=== PATIENT | male | born 1945 | race Caucasian/White ===

== ENCOUNTER 2021-07-19 01:00 | Inpatient (IN) | payer OTHER ==
[~2021-07-19] VITALS: Ht 182.9 cm; Wt 74.6 kg
[2021-07-19] MEDS ORDERED: ONDANSETRON HCL 4 MG/2 ML VIAL IV PRN (04:30)
[2021-07-19] MEDS ORDERED: NITROGLYCERIN 0.4 MG SL TAB SL PRN (04:30)
[2021-07-19] MEDS ORDERED: HYDROcodone-ACET 5/325MG TAB PO PRN (04:30)
[2021-07-19] MEDS ORDERED: ACETAMINOPHEN 325 MG TAB PO PRN (04:30)
[2021-07-19] MEDS ORDERED: MORPHINE SULFATE INJECTION 2 MG/ML SYRG IV PRN (04:30)
[2021-07-19] MEDS ORDERED: hydrALAZINE HCL 20 MG/ML VL IV PRN (04:30)
[2021-07-19] MEDS ORDERED: MORPHINE SULFATE 4 MG/ML SYR/VIAL IV PRN (04:30)
[2021-07-19 04:37] VITALS: BP 102/70
[2021-07-19 05:00] VITALS: BP 90/65
[2021-07-19] MEDS: SODIUM CHLOR 0.9% PF (SALINE LOCK) 10ML VIAL/SYR IV SCH ×3 (06:14→17:00)
[2021-07-19 07:16] LABS: Basophils # (auto) 0.1 10 ^3/uL (0-0.2); Basophils % (auto) 0.9 % (0.0-2.0); Eosinophils # (auto) 0.2 10 ^3/uL (0-0.8); Eosinophils % (auto) 3.2 % (0.0-7.0); Hematocrit 40.4 % (41.0-53.0); Hemoglobin 13.5 g/dL (13.5-17.5); Lymphocytes # (auto) 2.4 10 ^3/uL (0.4-5.4); Lymphocytes % (auto) 35.2 % (10.0-50.0); Mean Corpuscular Hemoglobin 28.7 pg (28.0-32.0); Mean Corpuscular Hgb Conc. 33.5 g/dL (32.0-36.0); Mean Corpuscular Volume 85.7 fL (80.0-100.0); Monocytes # (auto) 0.8 10 ^3/uL (0-1.3); Monocytes % (auto) 12.6 % (0.0-12.0); Neutrophils # (auto) 3.2 10 ^3/uL (1.6-8.6); Neutrophils % (auto) 48.1 % (37.0-80.0); Nucleated Red Blood Cells % 0.3 %; Red Blood Cells 4.71 10^6/uL (4.5-5.90); Red Cell Distribution Width 19.6 % (11.8-14.3); White Blood Cell 6.7 10^3/uL (4.4-10.8)
[2021-07-19 07:28] LABS: Potassium 3.2 mmol/L (3.5-5.1)
[2021-07-19] MEDS: MILK OF MAGNESIA 30ML SUSP PO PRN (07:28)
[2021-07-19 07:38] LABS: Albumin 2.8 g/dL (3.4-5.0); BUN/Creatinine Ratio 27.9; Bilirubin, Total 1.2 mg/dL (0.2-1.0); Calcium 8.7 mg/dL (8.5-10.1); Total Protein 6.1 g/dL (6.4-8.2)
[2021-07-19 09:00] VITALS: BP 112/80
[2021-07-19] MEDS: DOCUSATE SOD 100 MG CAP PO PRN (09:54)
[2021-07-19] MEDS: ASCORBIC ACID 500 MG TAB PO SCH ×2 (09:54→22:34)
[2021-07-19] MEDS: ZINC SULFATE 220mg CAP or TAB PO SCH (09:55)
[2021-07-19] MEDS: FAMOTIDINE (10MG/ML) 2ML VL IV SCH (09:55)
[2021-07-19] MEDS: ENOXAPARIN SOD 40 MG/0.4 ML SYRINGE SC SCH (09:56)
[2021-07-19] MEDS: ASPirin 81 mg TAB PO SCH (09:56)
[2021-07-19] MEDS: CARVEDILOL 3.125 MG TAB PO SCH ×2 (10:00→22:34)
[2021-07-19] MEDS ORDERED: FUROSEMIDE 40 MG/4 ML VIAL IV SCH (10:00)
[2021-07-19] MEDS ORDERED: MULTIPLE VITAMIN TAB PO SCH (10:00)
[2021-07-19 13:00] VITALS: BP 113/89
[2021-07-19] MEDS ORDERED: POTASSIUM CHL 20 Meq TABLET PO ONE (13:45)
[2021-07-19] MEDS ORDERED: POTASSIUM CHL 20MEQ/100ML 100 ML IV SCH (14:45)
[2021-07-19] MEDS ORDERED: AZITHROMYCIN 500MG/ 250ML 250 ML IV ONE (15:00)
[2021-07-19 17:00] VITALS: BP 115/89
[2021-07-19] MEDS ORDERED: POTASSIUM CHLORIDE 20 MEQ, LIDOCAINE 1% (LOCAL ANESTH.) 2 ML in SODIUM CHL 0.9% 100 ML IV ONE (17:30)
[2021-07-19] MEDS ORDERED: POTASSIUM (KCL) 40 MEQ,LIDOCAINE 1% 4 ML in NS 250 ML IV ONE ×3 (17:45)
[2021-07-19] MEDS ORDERED: ALBUTEROL SULF 2.5 MG/0.5ML(0.5%) NEB SOLN NEB SCH (18:00)
[2021-07-19] MEDS ORDERED: IPRATROPIUM BROM 0.5 MG/2.5ML INH SOL NEB SCH (18:00)
[2021-07-19] MEDS: FUROSEMIDE 40 MG/4 ML VIAL IV SCH (18:01)
[2021-07-19] MEDS: BUDESONIDE (INHALATION) 0.5 MG/2 ML NEB NEB SCH (18:20)
[2021-07-19 22:00] VITALS: BP 110/77
[2021-07-19] MEDS: methylPREDNISolone SOD SUCC 40 MG/ML VL IV SCH (22:33)
[2021-07-19] MEDS: ATORVASTATIN 20 MG TAB PO SCH (22:34)
[2021-07-20 05:00] VITALS: BP 111/72
[2021-07-20] MEDS: FUROSEMIDE 40 MG/4 ML VIAL IV SCH ×2 (05:53→18:24)
[2021-07-20] MEDS: SODIUM CHLOR 0.9% PF (SALINE LOCK) 10ML VIAL/SYR IV SCH ×3 (05:54→22:00)
[2021-07-20] MEDS: BUDESONIDE (INHALATION) 0.5 MG/2 ML NEB NEB SCH ×2 (06:15→22:24)
[2021-07-20] MEDS: ALBUTEROL SULF 2.5 MG/0.5ML(0.5%) NEB SOLN NEB PRN ×2 (06:15→22:24)
[2021-07-20 07:29] LABS: Basophils # (auto) 0 10 ^3/uL (0-0.2); Basophils % (auto) 0.4 % (0.0-2.0); Eosinophils # (auto) 0 10 ^3/uL (0-0.8); Hematocrit 47.9 % (41.0-53.0); Hemoglobin 15.5 g/dL (13.5-17.5); Lymphocytes # (auto) 1.6 10 ^3/uL (0.4-5.4); Lymphocytes % (auto) 19.5 % (10.0-50.0); Mean Corpuscular Hemoglobin 27.8 pg (28.0-32.0); Mean Corpuscular Hgb Conc. 32.4 g/dL (32.0-36.0); Monocytes # (auto) 0.1 10 ^3/uL (0-1.3); Monocytes % (auto) 1.2 % (0.0-12.0); Neutrophils # (auto) 6.6 10 ^3/uL (1.6-8.6); Neutrophils % (auto) 78.9 % (37.0-80.0); Nucleated Red Blood Cells % 0.1 %; Red Blood Cells 5.57 10^6/uL (4.5-5.90); Red Cell Distribution Width 19.9 % (11.8-14.3); White Blood Cell 8.4 10^3/uL (4.4-10.8)
[2021-07-20 07:48] LABS: Albumin 3.2 g/dL (3.4-5.0); Anion Gap 10 (5-15); BUN/Creatinine Ratio 23.8; Blood Urea Nitrogen 19 mg/dL (7-18); Carbon Dioxide 26 mmol/L (21-32); Chloride 104 mmol/L (98-107); GFR African American 121 mL/min; GFR Non-African American 100 mL/min; Glucose 151 mg/dL (74-106); Magnesium 2.5 mg/dL (1.6-2.6); Sodium 140 mmol/L (136-145)
[2021-07-20 07:53] LABS: Alanine Aminotransferase 57 U/L (16-61); Alkaline Phosphatase 86 U/L (45-117); Aspartate Aminotransferase 34 U/L (15-37); Bilirubin, Total 1.4 mg/dL (0.2-1.0); Phosphorus 3.7 mg/dL (2.5-4.90); Total Protein 7.5 g/dL (6.4-8.2)
[2021-07-20 08:51] VITALS: BP 116/88
[2021-07-20] MEDS: methylPREDNISolone SOD SUCC 40 MG/ML VL IV SCH ×2 (10:00→22:40)
[2021-07-20] MEDS ORDERED: LISINOPRIL 5 MG TAB PO SCH (10:00)
[2021-07-20] MEDS: ENOXAPARIN SOD 40 MG/0.4 ML SYRINGE SC SCH (10:00)
[2021-07-20] MEDS ORDERED: AZITHROMYCIN 500MG/ 250ML 250 ML IV SCH (10:00)
[2021-07-20] MEDS: FAMOTIDINE (10MG/ML) 2ML VL IV SCH (10:01)
[2021-07-20] MEDS: ZINC SULFATE 220mg CAP or TAB PO SCH (10:01)
[2021-07-20] MEDS: ASPirin 81 mg TAB PO SCH (10:02)
[2021-07-20] MEDS: POTASSIUM CHL 20 Meq TABLET PO SCH (10:02)
[2021-07-20] MEDS: CARVEDILOL 3.125 MG TAB PO SCH ×2 (10:03→22:40)
[2021-07-20] MEDS: DOCUSATE SOD 100 MG CAP PO PRN ×2 (10:04→22:41)
[2021-07-20] MEDS: MILK OF MAGNESIA 30ML SUSP PO PRN ×2 (10:07→14:07)
[2021-07-20 13:00] VITALS: BP 112/78
[2021-07-20 17:00] VITALS: BP 102/72
[2021-07-20 22:00] VITALS: BP 106/72
[2021-07-20] MEDS: IPRATROPIUM BROM 0.5 MG/2.5ML INH SOL NEB PRN (22:24)
[2021-07-20] MEDS: ATORVASTATIN 20 MG TAB PO SCH (22:39)
[2021-07-21] VITALS (8 sets, daily range): BP systolic 101–123; BP diastolic 72–87
[2021-07-21] MEDS: SODIUM CHLOR 0.9% PF (SALINE LOCK) 10ML VIAL/SYR IV SCH ×3 (05:27→22:24)
[2021-07-21] MEDS: FUROSEMIDE 40 MG/4 ML VIAL IV SCH ×2 (05:33→17:43)
[2021-07-21] MEDS: MILK OF MAGNESIA 30ML SUSP PO PRN (05:33)
[2021-07-21 08:16] LABS: BUN/Creatinine Ratio 30.8; Calcium 8.9 mg/dL (8.5-10.1)
[2021-07-21] MEDS ORDERED: ADENOSINE 59 MG in GIVE UN-DILUTED 0 ML IV STA (08:47)
[2021-07-21] MEDS: DOXYCYCLINE 100 MG TAB/CAP PO SCH ×2 (10:22→22:24)
[2021-07-21] MEDS: methylPREDNISolone SOD SUCC 40 MG/ML VL IV SCH ×2 (10:22→22:22)
[2021-07-21] MEDS: ASPirin 81 mg TAB PO SCH (10:22)
[2021-07-21] MEDS: POTASSIUM CHL 20 Meq TABLET PO SCH (10:22)
[2021-07-21] MEDS: FAMOTIDINE (10MG/ML) 2ML VL IV SCH (10:22)
[2021-07-21] MEDS: ENOXAPARIN SOD 40 MG/0.4 ML SYRINGE SC SCH (10:22)
[2021-07-21] MEDS: CARVEDILOL 3.125 MG TAB PO SCH ×2 (10:23→22:23)
[2021-07-21] MEDS: ZINC SULFATE 220mg CAP or TAB PO SCH (10:24)
[2021-07-21] MEDS: BUDESONIDE (INHALATION) 0.5 MG/2 ML NEB NEB SCH ×2 (11:01→22:52)
[2021-07-21] MEDS: ALBUTEROL SULF 2.5 MG/0.5ML(0.5%) NEB SOLN NEB PRN ×2 (11:01→22:52)
[2021-07-21] MEDS: IPRATROPIUM BROM 0.5 MG/2.5ML INH SOL NEB PRN ×2 (11:01→22:52)
[2021-07-21] MEDS: ATORVASTATIN 20 MG TAB PO SCH (22:23)
[2021-07-21] MEDS: SACUBITRIL-VALSARTAN 24mg/26mg TAB PO SCH (22:23)
[2021-07-22 05:14] VITALS: BP 107/77
[2021-07-22] MEDS: SODIUM CHLOR 0.9% PF (SALINE LOCK) 10ML VIAL/SYR IV SCH ×3 (06:30→21:42)
[2021-07-22] MEDS: FUROSEMIDE 40 MG/4 ML VIAL IV SCH ×2 (06:30→17:23)
[2021-07-22 09:00] VITALS: BP 115/83
[2021-07-22] MEDS: methylPREDNISolone SOD SUCC 40 MG/ML VL IV SCH (09:54)
[2021-07-22] MEDS: ASPirin 81 mg TAB PO SCH (09:55)
[2021-07-22] MEDS: ZINC SULFATE 220mg CAP or TAB PO SCH (09:55)
[2021-07-22] MEDS: CARVEDILOL 3.125 MG TAB PO SCH ×2 (09:56→21:42)
[2021-07-22] MEDS: SACUBITRIL-VALSARTAN 24mg/26mg TAB PO SCH ×2 (09:56→21:42)
[2021-07-22] MEDS: DOXYCYCLINE 100 MG TAB/CAP PO SCH ×2 (09:57→21:43)
[2021-07-22] MEDS: ENOXAPARIN SOD 40 MG/0.4 ML SYRINGE SC SCH (09:58)
[2021-07-22] MEDS: POTASSIUM CHL 20 Meq TABLET PO SCH (09:58)
[2021-07-22] MEDS: BUDESONIDE (INHALATION) 0.5 MG/2 ML NEB NEB SCH ×2 (10:09→23:41)
[2021-07-22] MEDS ORDERED: ERGOCALCIFEROL 50,000 UNIT(1.25MG) CAP PO SCH (11:15)
[2021-07-22] MEDS: DAPAGLIFLOZIN 5 MG TAB PO SCH (12:13)
[2021-07-22 13:00] VITALS: BP 114/79
[2021-07-22 17:00] VITALS: BP 114/90
[2021-07-22 21:20] VITALS: BP 105/68
[2021-07-22] MEDS: ATORVASTATIN 20 MG TAB PO SCH (21:43)
[2021-07-22] MEDS: IPRATROPIUM BROM 0.5 MG/2.5ML INH SOL NEB PRN (23:41)
[2021-07-22] MEDS: ALBUTEROL SULF 2.5 MG/0.5ML(0.5%) NEB SOLN NEB PRN (23:41)
[2021-07-23] VITALS (10 sets, daily range): BP systolic 101–122; BP diastolic 68–86
[2021-07-23] MEDS: SODIUM CHLOR 0.9% PF (SALINE LOCK) 10ML VIAL/SYR IV SCH ×3 (05:05→22:12)
[2021-07-23] MEDS: FUROSEMIDE 40 MG/4 ML VIAL IV SCH (05:05)
[2021-07-23] MEDS: BUDESONIDE (INHALATION) 0.5 MG/2 ML NEB NEB SCH ×2 (06:05→18:10)
[2021-07-23] MEDS: ALBUTEROL SULF 2.5 MG/0.5ML(0.5%) NEB SOLN NEB PRN ×2 (06:05→18:10)
[2021-07-23 07:26] LABS: Basophils # (auto) 0 10 ^3/uL (0-0.2); Basophils % (auto) 0.2 % (0.0-2.0); Eosinophils # (auto) 0 10 ^3/uL (0-0.8); Eosinophils % (auto) 0.1 % (0.0-7.0); Hematocrit 44.4 % (41.0-53.0); Hemoglobin 14.6 g/dL (13.5-17.5); Lymphocytes # (auto) 3.6 10 ^3/uL (0.4-5.4); Lymphocytes % (auto) 22.5 % (10.0-50.0); Mean Corpuscular Hemoglobin 28.5 pg (28.0-32.0); Mean Corpuscular Hgb Conc. 32.9 g/dL (32.0-36.0); Mean Corpuscular Volume 86.6 fL (80.0-100.0); Monocytes # (auto) 1.5 10 ^3/uL (0-1.3); Monocytes % (auto) 9.5 % (0.0-12.0); Neutrophils # (auto) 10.9 10 ^3/uL (1.6-8.6); Neutrophils % (auto) 67.7 % (37.0-80.0); Nucleated Red Blood Cells % 0.2 %; Red Blood Cells 5.12 10^6/uL (4.5-5.90); Red Cell Distribution Width 19.8 % (11.8-14.3)
[2021-07-23 07:46] LABS: INR 1.21 (0.9-1.15); Partial Thromboplastin Time 27.1 sec (23.6-33.0)
[2021-07-23 08:03] LABS: BUN/Creatinine Ratio 34.7; Calcium 8.7 mg/dL (8.5-10.1)
[2021-07-23] MEDS: ENOXAPARIN SOD 40 MG/0.4 ML SYRINGE SC SCH (09:07)
[2021-07-23] MEDS: ASPirin 81 mg TAB PO SCH (09:30)
[2021-07-23] MEDS: DAPAGLIFLOZIN 5 MG TAB PO SCH (09:31)
[2021-07-23] MEDS: SACUBITRIL-VALSARTAN 24mg/26mg TAB PO SCH ×2 (09:31→22:12)
[2021-07-23] MEDS: CARVEDILOL 3.125 MG TAB PO SCH ×2 (09:31→22:12)
[2021-07-23] MEDS: DOXYCYCLINE 100 MG TAB/CAP PO SCH ×2 (09:31→22:13)
[2021-07-23] MEDS: POTASSIUM CHL 20 Meq TABLET PO SCH (09:31)
[2021-07-23] MEDS ORDERED: IODIXANOL 320MG/ML 100ML BTL IV ONE ×2 (14:04→15:18)
[2021-07-23] MEDS ORDERED: LIDOCAINE 2%HCL (LOCAL ANESTH.) INJ 20ML MDV ONE (14:04)
[2021-07-23] MEDS ORDERED: fentaNYL CITRATE 100 MCG/2 ML VL ONE (14:43)
[2021-07-23] MEDS ORDERED: HEPARIN SODIUM (PORCINE) 5000 UNITS/ML 1ML VIAL ONE (14:43)
[2021-07-23] MEDS ORDERED: ANGIOMAX 250 MG VIAL IV ONE (14:43)
[2021-07-23] MEDS ORDERED: VERAPAMIL 2.5MG/ML INJ 2ML VIAL IV ONE (14:43)
[2021-07-23] MEDS ORDERED: MIDAZOLAM HCL 2MG/2ML 2ml VIAL (1mg/ml) ONE (14:44)
[2021-07-23] MEDS ORDERED: SODIUM CHL 0.9% 50 ML ONE (14:44)
[2021-07-23] MEDS ORDERED: CLOPIDOGREL 300 MG TAB ONE (15:34)
[2021-07-23] MEDS ORDERED: ASPirin 325 MG TAB ONE (15:34)
[2021-07-23] MEDS: FUROSEMIDE 20 MG/2 ML VIAL IV SCH (17:13)
[2021-07-23] MEDS: ATORVASTATIN 20 MG TAB PO SCH (22:12)
[2021-07-24 05:00] VITALS: BP 100/73
[2021-07-24] MEDS: FUROSEMIDE 20 MG/2 ML VIAL IV SCH ×2 (06:08→17:40)
[2021-07-24] MEDS: SODIUM CHLOR 0.9% PF (SALINE LOCK) 10ML VIAL/SYR IV SCH ×3 (06:08→20:22)
[2021-07-24 06:54] LABS: BUN/Creatinine Ratio 36.4; Calcium 8.5 mg/dL (8.5-10.1); Potassium 4.2 mmol/L (3.5-5.1)
[2021-07-24 09:00] VITALS: BP 87/65
[2021-07-24 09:15] VITALS: BP 108/76
[2021-07-24] MEDS ORDERED: CLOPIDOGREL BISULFATE 75 MG TAB PO SCH (10:00)
[2021-07-24] MEDS: POTASSIUM CHL 20 Meq TABLET PO SCH ×2 (10:00→10:04)
[2021-07-24] MEDS: ASPirin 81 mg TAB PO SCH (10:02)
[2021-07-24] MEDS: CARVEDILOL 3.125 MG TAB PO SCH ×2 (10:03→20:24)
[2021-07-24] MEDS: ENOXAPARIN SOD 40 MG/0.4 ML SYRINGE SC SCH (10:05)
[2021-07-24] MEDS: DOXYCYCLINE 100 MG TAB/CAP PO SCH ×2 (10:05→20:25)
[2021-07-24] MEDS: SACUBITRIL-VALSARTAN 24mg/26mg TAB PO SCH ×2 (10:06→20:24)
[2021-07-24] MEDS: DAPAGLIFLOZIN 5 MG TAB PO SCH (10:25)
[2021-07-24] MEDS: ALBUTEROL SULF 2.5 MG/0.5ML(0.5%) NEB SOLN NEB PRN ×2 (10:40→20:00)
[2021-07-24] MEDS: BUDESONIDE (INHALATION) 0.5 MG/2 ML NEB NEB SCH ×2 (10:41→20:01)
[2021-07-24] MEDS: IPRATROPIUM BROM 0.5 MG/2.5ML INH SOL NEB PRN ×2 (10:41→20:00)
[2021-07-24 13:00] VITALS: BP 99/75
[2021-07-24 17:00] VITALS: BP 101/86
[2021-07-24] MEDS: ATORVASTATIN 20 MG TAB PO SCH (20:24)
[2021-07-24] MEDS: MILK OF MAGNESIA 30ML SUSP PO PRN (21:14)
[2021-07-24 22:00] VITALS: BP 103/81
[2021-07-25 05:00] VITALS: BP 99/75
[2021-07-25] MEDS: SODIUM CHLOR 0.9% PF (SALINE LOCK) 10ML VIAL/SYR IV SCH (05:13)
[2021-07-25] MEDS: FUROSEMIDE 20 MG/2 ML VIAL IV SCH (05:13)
[2021-07-25 06:46] LABS: INR 1.21 (0.9-1.15); Partial Thromboplastin Time 26.8 sec (23.6-33.0)
[2021-07-25 06:53] LABS: BUN/Creatinine Ratio 32.8; Calcium 8.5 mg/dL (8.5-10.1)
[2021-07-25] MEDS: ENOXAPARIN SOD 40 MG/0.4 ML SYRINGE SC SCH (07:33)
[2021-07-25 07:48] LABS: Basophils # (auto) 0 10 ^3/uL (0-0.2); Basophils % (auto) 0.3 % (0.0-2.0); Eosinophils # (auto) 0.2 10 ^3/uL (0-0.8); Eosinophils % (auto) 2.2 % (0.0-7.0); Hemoglobin 16.2 g/dL (13.5-17.5); Lymphocytes # (auto) 5.3 10 ^3/uL (0.4-5.4); Lymphocytes % (auto) 46.9 % (10.0-50.0); Mean Corpuscular Hgb Conc. 32.4 g/dL (32.0-36.0); Mean Corpuscular Volume 86.3 fL (80.0-100.0); Monocytes # (auto) 0.8 10 ^3/uL (0-1.3); Monocytes % (auto) 7.1 % (0.0-12.0); Neutrophils # (auto) 4.9 10 ^3/uL (1.6-8.6); Neutrophils % (auto) 43.5 % (37.0-80.0); Nucleated Red Blood Cells % 0.6 %; Red Cell Distribution Width 19.7 % (11.8-14.3); White Blood Cell 11.2 10^3/uL (4.4-10.8)
[2021-07-25 09:00] VITALS: BP 100/72
[2021-07-25] MEDS: ASPirin 81 mg TAB PO SCH (10:26)
[2021-07-25] MEDS: CARVEDILOL 3.125 MG TAB PO SCH (10:27)
[2021-07-25] MEDS: DAPAGLIFLOZIN 5 MG TAB PO SCH (10:27)
[2021-07-25] MEDS: SACUBITRIL-VALSARTAN 24mg/26mg TAB PO SCH (10:27)
[2021-07-25] MEDS: DOXYCYCLINE 100 MG TAB/CAP PO SCH (10:28)
[2021-07-25 13:00] VITALS: BP 102/82
[2021-07-25 16:53] VITALS: BP 109/70
[2021-07-25 17:00] VITALS: BP 109/70
== END 2021-07-25 17:53 | disposition home or self-care (01) | DRG 246 ==
LOC: TELE-CENTR 01:00
PROVIDERS: ADMIT Internal Medicine; ATTEND Internal Medicine
PROC: 4B02XTZ Measurement of Cardiac Defibrillator, External Approach (ICD-10-PCS; 2021-07-21)
PROC: 027034Z Dilation of Coronary Artery, One Artery with Drug-eluting Intraluminal Device, Percutaneous Approach (ICD-10-PCS; principal; 2021-07-23)
PROC: 4A023N7 Measurement of Cardiac Sampling and Pressure, Left Heart, Percutaneous Approach (ICD-10-PCS; 2021-07-23)
PROC: B211YZZ Fluoroscopy of Multiple Coronary Arteries using Other Contrast (ICD-10-PCS; 2021-07-23)
PROC: B215YZZ Fluoroscopy of Left Heart using Other Contrast (ICD-10-PCS; 2021-07-23)
PROC: B213YZZ Fluoroscopy of Multiple Coronary Artery Bypass Grafts using Other Contrast (ICD-10-PCS; 2021-07-23)
PROC: B218YZZ Fluoroscopy of Left Internal Mammary Bypass Graft using Other Contrast (ICD-10-PCS; 2021-07-23)
DX: I21.4 Non-ST elevation (NSTEMI) myocardial infarction (principal); I50.23 Acute on chronic systolic (congestive) heart failure; E43 Unspecified severe protein-calorie malnutrition; J44.1 Chronic obstructive pulmonary disease with (acute) exacerbation; Z68.1 Body mass index [BMI] 19.9 or less, adult; I47.2 Ventricular tachycardia; E87.6 Hypokalemia; E78.5 Hyperlipidemia, unspecified; E55.9 Vitamin D deficiency, unspecified; I11.0 Hypertensive heart disease with heart failure; I25.10 Atherosclerotic heart disease of native coronary artery without angina pectoris; I25.5 Ischemic cardiomyopathy; I50.82 Biventricular heart failure; Z20.822 Contact with and (suspected) exposure to COVID-19; K21.9 Gastro-esophageal reflux disease without esophagitis; R73.03 Prediabetes; Z82.49 Family history of ischemic heart disease and other diseases of the circulatory system; Z95.810 Presence of automatic (implantable) cardiac defibrillator; Z95.1 Presence of aortocoronary bypass graft
CPT/HCPCS: 36415; 71045; 78452; 80048; 80053; 80061; 82306; 83036; 83735; 83880; 84100; 84443; 84484; 85025; 85610; 85730; 87081; 87426; 93005; 93017; 93306; 94640; 99152; 99153; C1874; G0378; J0153; J2001; J2250; J2405; J3480; J3490; Q9967

== ENCOUNTER 2021-08-17 16:18 | Inpatient (IN) | payer OTHER ==
[~2021-08-17] VITALS: Ht 190.5 cm; Wt 77.7 kg
[2021-08-17 16:24] VITALS: BP 169/108
[2021-08-17] MEDS ORDERED: MORPHINE SULFATE INJECTION 2 MG/ML SYRG IV PRN (16:30)
[2021-08-17] MEDS ORDERED: ONDANSETRON HCL 4 MG/2 ML VIAL IV PRN (16:30)
[2021-08-17] MEDS ORDERED: HYDROcodone-ACET 5/325MG TAB PO PRN (16:30)
[2021-08-17] MEDS ORDERED: LORazepam 0.5 MG TAB PO PRN (16:30)
[2021-08-17] MEDS ORDERED: DOCUSATE SOD 100 MG CAP PO PRN (16:30)
[2021-08-17] MEDS ORDERED: ACETAMINOPHEN 325 MG TAB PO PRN (16:30)
[2021-08-17] MEDS ORDERED: cefTRIAXone 1GM/50ML D5W 50 ML IV ONE (16:45)
[2021-08-17] MEDS ORDERED: POTA-220 PO (16:58)
[2021-08-17] MEDS ORDERED: ASPI325T4 PO (16:58)
[2021-08-17] MEDS ORDERED: CAR3125T PO (16:58)
[2021-08-17] MEDS ORDERED: ATO40T PO (16:58)
[2021-08-17] MEDS ORDERED: CLOP75TA28 PO (16:58)
[2021-08-17] MEDS ORDERED: DAPA1TAB4 PO (16:58)
[2021-08-17] MEDS ORDERED: SACU1TAB PO (16:58)
[2021-08-17] MEDS ORDERED: FURO1TAB31 PO (16:58)
[2021-08-17 17:28] LABS: Basophils # (auto) 0 10 ^3/uL (0-0.2); Basophils % (auto) 0.4 % (0.0-2.0); Eosinophils # (auto) 0 10 ^3/uL (0-0.8); Eosinophils % (auto) 0.2 % (0.0-7.0); Hematocrit 42.5 % (41.0-53.0); Hemoglobin 14.1 g/dL (13.5-17.5); Lymphocytes # (auto) 0.8 10 ^3/uL (0.4-5.4); Lymphocytes % (auto) 16.9 % (10.0-50.0); Mean Corpuscular Hemoglobin 28.8 pg (28.0-32.0); Monocytes # (auto) 0.1 10 ^3/uL (0-1.3); Monocytes % (auto) 1.3 % (0.0-12.0); Neutrophils # (auto) 4.1 10 ^3/uL (1.6-8.6); Neutrophils % (auto) 81.2 % (37.0-80.0); Nucleated Red Blood Cells % 0.2 %; Red Blood Cells 4.89 10^6/uL (4.5-5.90); Red Cell Distribution Width 18.3 % (11.8-14.3)
[2021-08-17 17:33] LABS: Calcium 8.7 mg/dL (8.5-10.1); Potassium 4.1 mmol/L (3.5-5.1)
[2021-08-17 17:36] LABS: BUN/Creatinine Ratio 18.1
[2021-08-17] MEDS ORDERED: AZITHROMYCIN 500MG/ 250ML 250 ML IV ONE (18:00)
[2021-08-17] MEDS: IPRATROPIUM BROM 0.5 MG/2.5ML INH SOL NEB PRN ×2 (18:22→22:01)
[2021-08-17] MEDS: ALBUTEROL SULF 2.5 MG/0.5ML(0.5%) NEB SOLN NEB SCH ×2 (18:23→22:00)
[2021-08-17 20:00] VITALS: BP 133/96
[2021-08-17 20:31] LABS: Urine Bacteria NONE SEEN /hpf (None Seen); Urine Blood Negative /uL (Negative); Urine Specific Gravity 1.035 (1.001-1.035); Urine WBC 1 /hpf (0 - 3)
[2021-08-17 20:50] LABS: Alcohol, Urine < 3.0 mg/dL (0-10); Amphetamine Screen, Urine NEGATIVE (NEGATIVE); Barbiturate Scree,Urine NEGATIVE (NEGATIVE); Benzodiazephine Screen, Urine NEGATIVE (NEGATIVE); Cannabinoid Screen, Urine NEGATIVE (NEGATIVE); Cocaine Screen, Urine NEGATIVE (NEGATIVE); Opiate Scree,Urine NEGATIVE (NEGATIVE); Phencyclidine Screen, Urine NEGATIVE (NEGATIVE)
[2021-08-17] MEDS: methylPREDNISolone SOD SUCC 40 MG/ML VL IV SCH (21:45)
[2021-08-17 22:00] VITALS: BP 133/96
[2021-08-18 05:00] VITALS: BP 151/101
[2021-08-18] MEDS: methylPREDNISolone SOD SUCC 40 MG/ML VL IV SCH (05:50)
[2021-08-18] MEDS: IPRATROPIUM BROM 0.5 MG/2.5ML INH SOL NEB PRN ×5 (06:04→22:08)
[2021-08-18] MEDS: ALBUTEROL SULF 2.5 MG/0.5ML(0.5%) NEB SOLN NEB SCH ×5 (06:04→22:08)
[2021-08-18 08:30] VITALS: BP 140/94
[2021-08-18] MEDS ORDERED: FUROSEMIDE 20 MG/2 ML VIAL IV ONE (08:45)
[2021-08-18] MEDS ORDERED: cefTRIAXone 1GM/50ML D5W 50 ML IV SCH (09:00)
[2021-08-18] MEDS ORDERED: AZITHROMYCIN 500MG/ 250ML 250 ML IV SCH (10:00)
[2021-08-18] MEDS: ASPirin 81 mg TAB PO SCH (10:10)
[2021-08-18] MEDS: CARVEDILOL 12.5 MG TAB PO SCH ×2 (10:11→21:13)
[2021-08-18] MEDS: ENOXAPARIN SOD 40 MG/0.4 ML SYRINGE SC SCH (10:12)
[2021-08-18] MEDS: CLOPIDOGREL BISULFATE 75 MG TAB PO SCH (10:12)
[2021-08-18] MEDS: SACUBITRIL-VALSARTAN 24mg/26mg TAB PO SCH ×2 (10:12→21:13)
[2021-08-18] MEDS: DAPAGLIFLOZIN 5 MG TAB PO SCH (10:12)
[2021-08-18 11:18] LABS: Calcium 9.3 mg/dL (8.5-10.1); Potassium 4.4 mmol/L (3.5-5.1)
[2021-08-18 11:21] LABS: BUN/Creatinine Ratio 18.1
[2021-08-18 12:30] VITALS: BP 133/102
[2021-08-18 17:00] VITALS: BP 115/84
[2021-08-18] MEDS ORDERED: ATORVASTATIN 20 MG TAB PO SCH (22:00)
[2021-08-18 22:25] VITALS: BP 129/99
[2021-08-19 05:12] VITALS: BP 119/88
[2021-08-19] MEDS: IPRATROPIUM BROM 0.5 MG/2.5ML INH SOL NEB PRN ×3 (06:43→19:25)
[2021-08-19] MEDS: ALBUTEROL SULF 2.5 MG/0.5ML(0.5%) NEB SOLN NEB SCH ×4 (06:43→19:25)
[2021-08-19 07:32] LABS: Basophils # (auto) 0 10 ^3/uL (0-0.2); Basophils % (auto) 0.1 % (0.0-2.0); Eosinophils # (auto) 0 10 ^3/uL (0-0.8); Hematocrit 39.7 % (41.0-53.0); Hemoglobin 13.1 g/dL (13.5-17.5); Lymphocytes # (auto) 1.4 10 ^3/uL (0.4-5.4); Lymphocytes % (auto) 14.6 % (10.0-50.0); Mean Corpuscular Hemoglobin 29.1 pg (28.0-32.0); Mean Corpuscular Hgb Conc. 33.1 g/dL (32.0-36.0); Monocytes # (auto) 1.1 10 ^3/uL (0-1.3); Monocytes % (auto) 10.8 % (0.0-12.0); Neutrophils # (auto) 7.3 10 ^3/uL (1.6-8.6); Neutrophils % (auto) 74.5 % (37.0-80.0); Nucleated Red Blood Cells % 0.2 %; Red Blood Cells 4.51 10^6/uL (4.5-5.90); Red Cell Distribution Width 18.5 % (11.8-14.3); White Blood Cell 9.8 10^3/uL (4.4-10.8)
[2021-08-19 07:44] LABS: Calcium 9.2 mg/dL (8.5-10.1); Potassium 4.7 mmol/L (3.5-5.1)
[2021-08-19 07:47] LABS: BUN/Creatinine Ratio 34.8
[2021-08-19 07:48] LABS: INR 1.17 (0.9-1.15); Partial Thromboplastin Time 22.9 sec (23.6-33.0)
[2021-08-19 09:16] VITALS: BP 122/80
[2021-08-19] MEDS: SACUBITRIL-VALSARTAN 24mg/26mg TAB PO SCH (09:45)
[2021-08-19] MEDS: DAPAGLIFLOZIN 5 MG TAB PO SCH (09:45)
[2021-08-19] MEDS: CARVEDILOL 12.5 MG TAB PO SCH (09:45)
[2021-08-19] MEDS: ASPirin 81 mg TAB PO SCH (09:46)
[2021-08-19] MEDS: ENOXAPARIN SOD 40 MG/0.4 ML SYRINGE SC SCH (09:46)
[2021-08-19] MEDS: CLOPIDOGREL BISULFATE 75 MG TAB PO SCH (09:46)
[2021-08-19 13:30] VITALS: BP 126/77
[2021-08-19] MEDS ORDERED: VANCOMYCIN 1GM/250ML 250 ML IV ONE (14:05)
[2021-08-19] MEDS ORDERED: MIDAZOLAM HCL 2MG/2ML 2ml VIAL (1mg/ml) ONE (14:53)
[2021-08-19] MEDS ORDERED: fentaNYL CITRATE 100 MCG/2 ML VL ONE (14:53)
[2021-08-19] MEDS ORDERED: LIDOCAINE 2%HCL (LOCAL ANESTH.) INJ 20ML MDV ONE (14:53)
[2021-08-19] MEDS ORDERED: VANCOMYCIN HCL 1000 MG VL ONE (15:07)
[2021-08-19 16:30] VITALS: BP 121/84
[2021-08-19] MEDS ORDERED: FAMOTIDINE 20 MG TAB PO SCH (22:00)
== END 2021-08-19 20:22 | disposition home or self-care (01) | DRG 291 ==
LOC: TELE-WESTW 16:18
PROVIDERS: ADMIT Hospitalist; ATTEND Internal Medicine
PROC: B5171ZZ Fluoroscopy of Left Subclavian Vein using Low Osmolar Contrast (ICD-10-PCS; principal; 2021-08-19)
DX: I11.0 Hypertensive heart disease with heart failure (principal); I50.43 Acute on chronic combined systolic (congestive) and diastolic (congestive) heart failure; J44.1 Chronic obstructive pulmonary disease with (acute) exacerbation; I47.2 Ventricular tachycardia; I25.5 Ischemic cardiomyopathy; I25.10 Atherosclerotic heart disease of native coronary artery without angina pectoris; Z20.822 Contact with and (suspected) exposure to COVID-19; E66.9 Obesity, unspecified; E78.5 Hyperlipidemia, unspecified; F17.210 Nicotine dependence, cigarettes, uncomplicated; J44.9 Chronic obstructive pulmonary disease, unspecified; Z82.49 Family history of ischemic heart disease and other diseases of the circulatory system; Z86.73 Personal history of transient ischemic attack (TIA), and cerebral infarction without residual deficits; Z95.0 Presence of cardiac pacemaker; Z95.1 Presence of aortocoronary bypass graft; Z98.61 Coronary angioplasty status
CPT/HCPCS: 36415; 71045; 80048; 80061; 80307; 81001; 83735; 83880; 84484; 85025; 85610; 85730; 87040; 87081; 94640; 99152; G0378; J0696; J2250

== ENCOUNTER 2021-10-16 08:19 | Emergency (ER) | payer OTHER ==
[~2021-10-16] VITALS: Ht 190.5 cm; Wt 77.1 kg
[~2021-10-16 08:19] MED LIST: ASPI325T4 PO; ATO40T PO; CAR3125T PO; CLOP75TA28 PO; DAPA1TAB4 PO; FURO1TAB31 PO; POTA-220 PO; SACU1TAB PO
[2021-10-16 10:55] LABS: Basophils # (auto) 0.1 10 ^3/uL (0-0.2); Eosinophils # (auto) 0 10 ^3/uL (0-0.8); Eosinophils % (auto) 0.5 % (0.0-7.0); Hematocrit 42.1 % (41.0-53.0); Hemoglobin 13.7 g/dL (13.5-17.5); Lymphocytes % (auto) 17.8 % (10.0-50.0); Mean Corpuscular Hemoglobin 27.1 pg (28.0-32.0); Mean Corpuscular Hgb Conc. 32.6 g/dL (32.0-36.0); Monocytes # (auto) 0.8 10 ^3/uL (0-1.3); Monocytes % (auto) 13.6 % (0.0-12.0); Neutrophils # (auto) 3.8 10 ^3/uL (1.6-8.6); Neutrophils % (auto) 67.1 % (37.0-80.0); Red Blood Cells 5.07 10^6/uL (4.5-5.90); Red Cell Distribution Width 16.1 % (11.8-14.3); White Blood Cell 5.6 10^3/uL (4.4-10.8)
[2021-10-16 11:01] LABS: Calcium 8.6 mg/dL (8.5-10.1)
[2021-10-16 11:09] LABS: BUN/Creatinine Ratio 22.4; Bilirubin, Total 2.3 mg/dL (0.2-1.0)
[2021-10-16 16:55] VITALS: BP 119/85
== END 2021-10-16 16:13 | disposition home or self-care (01) ==
LOC: EDBD 08:19 → ER 08:19
DX: E44.1 Mild protein-calorie malnutrition (principal); I11.0 Hypertensive heart disease with heart failure; I50.9 Heart failure, unspecified; E78.5 Hyperlipidemia, unspecified; Z68.21 Body mass index [BMI] 21.0-21.9, adult; Z20.822 Contact with and (suspected) exposure to COVID-19
CPT/HCPCS: 36415; 71045; 80053; 83880; 84484; 85025; 87426

== ENCOUNTER 2021-11-07 12:38 | Emergency (ER) | payer OTHER ==
[~2021-11-07] VITALS: Ht 190.5 cm; Wt 74.8 kg
[2021-11-07] MEDS ORDERED: FUROSEMIDE 20 MG/2 ML VIAL IV ONE (16:15)
[2021-11-07 16:34] LABS: Anion Gap 7 (5-15); Blood Urea Nitrogen 18 mg/dL (7-18); Carbon Dioxide 22 mmol/L (21-32); Chloride 110 mmol/L (98-107); Glucose 95 mg/dL (74-106); Sodium 139 mmol/L (136-145)
[2021-11-07 16:35] LABS: Alanine Aminotransferase 38 U/L (16-61); Albumin 2.9 g/dL (3.4-5.0); Alkaline Phosphatase 80 U/L (45-117); Aspartate Aminotransferase 34 U/L (15-37); BUN/Creatinine Ratio 23.1; Bilirubin, Total 1.7 mg/dL (0.2-1.0); Calcium 8.7 mg/dL (8.5-10.1); GFR African American 124 mL/min; GFR Non-African American 103 mL/min; Total Protein 5.5 g/dL (6.4-8.2)
[2021-11-07 17:18] LABS: Basophils # (auto) 0.1 10 ^3/uL (0-0.2); Basophils % (auto) 0.7 % (0.0-2.0); Eosinophils # (auto) 0 10 ^3/uL (0-0.8); Eosinophils % (auto) 0.4 % (0.0-7.0); Hematocrit 43.7 % (41.0-53.0); Hemoglobin 14.1 g/dL (13.5-17.5); Lymphocytes # (auto) 2.2 10 ^3/uL (0.4-5.4); Lymphocytes % (auto) 27.2 % (10.0-50.0); Mean Corpuscular Hemoglobin 26.3 pg (28.0-32.0); Mean Corpuscular Hgb Conc. 32.2 g/dL (32.0-36.0); Mean Corpuscular Volume 81.8 fL (80.0-100.0); Monocytes % (auto) 11.7 % (0.0-12.0); Neutrophils # (auto) 4.9 10 ^3/uL (1.6-8.6); Nucleated Red Blood Cells % 0.1 %; Red Blood Cells 5.35 10^6/uL (4.5-5.90); White Blood Cell 8.2 10^3/uL (4.4-10.8)
[2021-11-07 18:40] VITALS: BP 102/69
== END 2021-11-07 19:26 | disposition home or self-care (01) ==
LOC: EDBD 12:38 → ER 12:38
DX: I11.0 Hypertensive heart disease with heart failure (principal); I50.9 Heart failure, unspecified; E78.5 Hyperlipidemia, unspecified; R41.0 Disorientation, unspecified
CPT/HCPCS: 36415; 70450; 71045; 72192; 80053; 83735; 83880; 84484; 85025; 93005; 96374; 99285; J1940

== ENCOUNTER 2021-11-12 20:13 | Observation (INO) | payer OTHER ==
[~2021-11-12] VITALS: Ht 185.4 cm; Wt 86.7 kg
[2021-11-12 21:53] LABS: Basophils # (auto) 0.1 10 ^3/uL (0-0.2); Eosinophils # (auto) 0 10 ^3/uL (0-0.8); Hemoglobin 13.7 g/dL (13.5-17.5); Lymphocytes # (auto) 2.1 10 ^3/uL (0.4-5.4); Mean Corpuscular Hgb Conc. 32.2 g/dL (32.0-36.0); Monocytes # (auto) 0.8 10 ^3/uL (0-1.3); Nucleated Red Blood Cells % 0.1 %
[2021-11-12 21:55] LABS: Basophils % (auto) 0.8 % (0.0-2.0); Eosinophils % (auto) 0.4 % (0.0-7.0); Hematocrit 42.7 % (41.0-53.0); Lymphocytes % (auto) 24.5 % (10.0-50.0); Mean Corpuscular Hemoglobin 25.9 pg (28.0-32.0); Mean Corpuscular Volume 80.6 fL (80.0-100.0); Monocytes % (auto) 9.5 % (0.0-12.0); Neutrophils # (auto) 5.6 10 ^3/uL (1.6-8.6); Neutrophils % (auto) 64.8 % (37.0-80.0); Red Blood Cells 5.29 10^6/uL (4.5-5.90); Red Cell Distribution Width 17.1 % (11.8-14.3); White Blood Cell 8.6 10^3/uL (4.4-10.8)
[2021-11-12 22:13] LABS: Albumin 2.8 g/dL (3.4-5.0); BUN/Creatinine Ratio 22.1; Calcium 8.9 mg/dL (8.5-10.1)
[2021-11-12 23:11] LABS: Bilirubin, Total 1.9 mg/dL (0.2-1.0); Total Protein 5.4 g/dL (6.4-8.2)
[2021-11-13] MEDS ORDERED: diphenhdrAMINE HCL 25 MG CAP PO ONE (00:45)
[2021-11-13] MEDS ORDERED: FUROSEMIDE 100 MG/10ML VIAL IV ONE (00:45)
[2021-11-13 03:55] LABS: Urine Bacteria NONE SEEN /hpf (None Seen); Urine Blood Negative /uL (Negative); Urine Hyaline Cast FEW /lpf (0 - 2); Urine Specific Gravity 1.009 (1.001-1.035); Urine WBC <1 /hpf (0 - 3)
[2021-11-13] MEDS ORDERED: SOD CHL 0.45% 1,000 ML IV ONE (05:45)
[2021-11-13] MEDS ORDERED: NITROGLYCERIN 0.4 MG SL TAB SL PRN (05:45)
[2021-11-13] MEDS ORDERED: MORPHINE SULFATE INJECTION 2 MG/ML SYRG IV PRN (05:45)
[2021-11-13] MEDS ORDERED: ONDANSETRON HCL 4 MG/2 ML VIAL ONE (06:54)
[2021-11-13] MEDS ORDERED: ONDANSETRON HCL 4 MG/2 ML VIAL IV PRN (07:00)
[2021-11-13 07:01] LABS: Basophils # (auto) 0.1 10 ^3/uL (0-0.2); Eosinophils # (auto) 0 10 ^3/uL (0-0.8); Hemoglobin 14.2 g/dL (13.5-17.5); Lymphocytes # (auto) 2.3 10 ^3/uL (0.4-5.4); Red Cell Distribution Width 17.3 % (11.8-14.3)
[2021-11-13 07:05] LABS: Basophils % (auto) 0.9 % (0.0-2.0); Eosinophils % (auto) 0.3 % (0.0-7.0); Lymphocytes % (auto) 26.1 % (10.0-50.0); Mean Corpuscular Hgb Conc. 32.2 g/dL (32.0-36.0); Mean Corpuscular Volume 80.9 fL (80.0-100.0); Monocytes # (auto) 0.9 10 ^3/uL (0-1.3); Monocytes % (auto) 10.1 % (0.0-12.0); Neutrophils # (auto) 5.5 10 ^3/uL (1.6-8.6); Neutrophils % (auto) 62.6 % (37.0-80.0); Nucleated Red Blood Cells % 0.2 %; Red Blood Cells 5.44 10^6/uL (4.5-5.90); White Blood Cell 8.7 10^3/uL (4.4-10.8)
[2021-11-13 07:09] LABS: INR 1.43 (0.9-1.15)
[2021-11-13] MEDS: ALBUMIN 25% 100 ML IV SCH ×3 (08:14→21:42)
[2021-11-13 08:33] LABS: Potassium 3.8 mmol/L (3.5-5.1)
[2021-11-13 08:39] LABS: Albumin 2.8 g/dL (3.4-5.0); Calcium 8.9 mg/dL (8.5-10.1)
[2021-11-13 09:30] LABS: BUN/Creatinine Ratio 20.2
[2021-11-13] MEDS: FUROSEMIDE 40 MG/4 ML VIAL IV SCH ×2 (09:42→18:00)
[2021-11-13] MEDS: ENOXAPARIN SOD 40 MG/0.4 ML SYRINGE SC SCH (09:43)
[2021-11-13 09:56] LABS: Bilirubin, Total 2.3 mg/dL (0.2-1.0); Total Protein 5.7 g/dL (6.4-8.2)
[2021-11-13 13:00] VITALS: BP 113/84
[2021-11-13 14:14] VITALS: BP 127/88
[2021-11-13 16:47] VITALS: BP 120/86
[2021-11-13 22:00] VITALS: BP 108/79
[2021-11-14 05:00] VITALS: BP 104/82
[2021-11-14] MEDS: FUROSEMIDE 40 MG/4 ML VIAL IV SCH ×2 (05:43→18:00)
[2021-11-14 07:43] LABS: Albumin 2.4 g/dL (3.4-5.0); BUN/Creatinine Ratio 26.7; Bilirubin, Total 2.6 mg/dL (0.2-1.0); Calcium 8.5 mg/dL (8.5-10.1); Total Protein 5.4 g/dL (6.4-8.2)
[2021-11-14 08:23] LABS: Potassium 4.2 mmol/L (3.5-5.1)
[2021-11-14 09:00] VITALS: BP 113/73
[2021-11-14] MEDS: ENOXAPARIN SOD 40 MG/0.4 ML SYRINGE SC SCH (10:00)
[2021-11-14 13:00] VITALS: BP 114/82
[2021-11-14 15:59] VITALS: BP 111/79
[2021-11-14 17:00] VITALS: BP 111/79
== END 2021-11-14 20:20 | disposition home or self-care (01) ==
LOC: ER 20:13 → EDBD 20:13 → EDSEX 20:13 → TELE 11-13 06:05 → TELE-WESTW 11-13 11:59
PROVIDERS: ADMIT Internal Medicine; ATTEND Internal Medicine
DX: I11.0 Hypertensive heart disease with heart failure (principal); I50.43 Acute on chronic combined systolic (congestive) and diastolic (congestive) heart failure; Z20.822 Contact with and (suspected) exposure to COVID-19; I25.10 Atherosclerotic heart disease of native coronary artery without angina pectoris; I25.5 Ischemic cardiomyopathy; E78.00 Pure hypercholesterolemia, unspecified; F41.9 Anxiety disorder, unspecified; E78.5 Hyperlipidemia, unspecified; Z82.49 Family history of ischemic heart disease and other diseases of the circulatory system; Z79.899 Other long term (current) drug therapy; Z79.82 Long term (current) use of aspirin; Z95.1 Presence of aortocoronary bypass graft
CPT/HCPCS: 36415; 71045; 80053; 81001; 83880; 84484; 85025; 85379; 85610; 87426; 93005; 93971; 96365; 96366; 96372; 96375; 96376; 99285; G0378; J1650; J1940; J2405; P9047